=== PATIENT | female | born 1970 | race Caucasian/White ===

== ENCOUNTER → 2016-05-07 | Outpatient (CLI) | payer BC ==
[2016-05-07 16:52] LABS: Aty Lym Flag Slight; CH 31.8; CHCM 32.5; HCT 41.4 % (34.0-46.0); HGB 13.5 gm/dL (11.4-16.0); MCH 32.2 pg (25.0-35.0); MCHC 32.7 g/dL (31.0-37.0); MCV 98.5 fL (80.0-100.0); Mean Platelet Volume 7.6; RBC 4.21 m/uL (3.80-5.40); RDW 12.1 % (11.5-15.5); WBC 9.8 k/uL (3.8-10.6); WBC (Perox) 10.45
[2016-05-07 16:57] LABS: ALT 44 U/L (9-52); AST 32 U/L (14-36); Alkaline Phosphatase 54 U/L (38-126); Anion Gap 11 mmol/L; Blood Urea Nitrogen 11 mg/dL (7-17); Calcium 9.3 mg/dL (8.4-10.2); Carbon Dioxide 27 mmol/L (22-30); Chloride 103 mmol/L (98-107); Glucose 88 mg/dL (74-99); Non-African American GFR(MDRD) >60 (>60 ml/min/1.73 sqM); Potassium 4.1 mmol/L (3.5-5.1); Sodium 141 mmol/L (137-145); Total Bilirubin 0.5 mg/dL (0.2-1.3); Total Protein 7.5 g/dL (6.3-8.2)
[2016-05-07 17:31] LABS: Add Differential Manual Differential
[2016-05-07 17:34] LABS: Manual Review Performed; Nucleated Red Blood Cells 0 /100 WBC (0-0); RBC Morphology Normal; Total Cells Counted 100
== END | disposition home or self-care (01) ==
LOC: LABWHC1 16:19
PROVIDERS: ATTEND Internal Medicine Geriatric Medicine
DX: E03.9 Hypothyroidism, unspecified (principal)
CPT/HCPCS: 36415; 80053; 84439; 84443; 85025

== ENCOUNTER → 2016-07-08 | Outpatient (CLI) | payer BC | LOC: LABWHC1 17:00 | PROVIDERS: ATTEND Internal Medicine Geriatric Medicine | DX: E03.9 Hypothyroidism, unspecified (principal) | CPT/HCPCS: 36415; 84439; 84443 ==

== ENCOUNTER 2016-09-09 09:30 | Day surgery (SDC) | payer BC ==
[~2016-09-09 09:30] MED LIST: SODIUM CHLORIDE 0.9% 1,000 ML IV SCH
[2016-09-09 10:27] VITALS: BP 107/76; PULSE 87; RESP 16; TEMP 98.6
--- NOTE | 2016-09-09 13:39 | P.PCN ---
Preoperative Diagnosis: Twelve-lead ECG Sinus mechanism, mildly prolonged CT interval normal QT interval normal ST segments Tilt table test Patient underwent tilt table test per protocol. Normal heart rate and blood pressure response to upright tilting No evidence for neurocardiogenic syncope or dysautonomia Postoperative Diagnosis: Procedure(s) Performed: Implants: Indications for Procedure: Operative Findings: Description of Procedure:
== END 2016-09-09 13:30 | disposition home or self-care (01) ==
LOC: CATHEP 09:30
PROVIDERS: ATTEND Internal Medicine Clinical Cardiac Electrophysiology
DX: R00.0 Tachycardia, unspecified (principal); R00.2 Palpitations; Z87.891 Personal history of nicotine dependence; Z79.899 Other long term (current) drug therapy; Z88.5 Allergy status to narcotic agent; Z88.0 Allergy status to penicillin
CPT/HCPCS: 81025; 93005; 93660

== ENCOUNTER 2016-10-06 00:20 | Emergency (ER) | payer BC ==
[2016-10-06 00:27] VITALS: RESP 18
--- NOTE | 2016-10-06 00:49 | ED ---
Chest Pain HPI - General Chief Complaint: Chest Pain Stated Complaint: chest pain Time Seen by Provider: 10/06/16 00:33 Source: patient Mode of arrival: wheelchair Limitations: no limitations - History of Present Illness Initial Comments: This patient is a 46-year-old woman who presents to be evaluated for chest pain. Started this evening and she states that it also seems to be in her neck and left shoulder. She states the pain is tight or squeezing. It is moderate intensity and is constant. She has noted it is worse if she moves her shoulder or if she presses on her chest. She has not noted any relieving factors. She did not have any associated symptoms, including no dyspnea, diaphoresis, nausea or vomiting, palpitations, lightheadedness or syncope. No smoking history. MD Complaint: chest pain -: hour(s) Onset: during rest Pain Location: substernal Pain Radiation: neck Severity: moderate Quality: tightness Consistency: constant Improves With: nothing Worsens With: palpation, movement Treatments Prior to Arrival: none - Related Data Home Medications Medication Instructions Recorded Confirmed DULoxetine HCL [Cymbalta] 60 mg PO DAILY 09/09/16 09/09/16 Diltiazem Cd [Cardizem Cd] 180 mg PO DAILY 09/09/16 10/06/16 Levothyroxine Sodium [Synthroid] 25 mcg PO DAILY 09/09/16 10/06/16 Digoxin [Lanoxin] 125 mcg PO DAILY 10/06/16 10/06/16 Allergies Allergy/AdvReac Type Severity Reaction Status Date / Time amoxicillin Allergy Rash/Hives Verified 09/09/16 10:12 Review of Systems ROS Statement: Those systems with pertinent positive or pertinent negative responses have been documented in the HPI. ROS Other: All systems not noted in ROS Statement are negative. Constitutional: Denies: fever, chills, weakness Respiratory: Denies: cough, dyspnea, wheezes Cardiovascular: Reports: as per HPI, chest pain. Denies: palpitations, edema, syncope Gastrointestinal: Denies: abdominal pain, nausea, vomiting Genitourinary: Denies: dysuria, hematuria Musculoskeletal: Denies: back pain Skin: Denies: rash Neurological: Denies: headache, weakness, numbness, paresthesias EKG Findings - EKG Results: EKG: interpreted by JO ANN, sinus rhythm (Rate approximately 93 bpm), normal axis , normal QRS, normal ST/T - Blocks, Aneta, Hypertrophy, ST Abn: AV and intraventricular conduction: 1 AV block Past Medical History Additional Past Medical History / Comment(s): INTERSTITIAL CYSTITIS, ENDOMETRIOSIS History of Any Multi-Drug Resistant Organisms: None Reported Additional Past Surgical History / Comment(s): ECTOPIC RUPTURE Past Psychological History: Anxiety, Depression Smoking Status: Former smoker Past Alcohol Use History: Daily Past Drug Use History: None Reported General Exam Limitations: no limitations General appearance: alert, in no apparent distress Head exam: Present: atraumatic, normocephalic Eye exam: Present: normal appearance. Absent: scleral icterus, conjunctival injection ENT exam: Present: normal oropharynx Neck exam: Present: normal inspection, full ROM Respiratory exam: Present: normal lung sounds bilaterally, chest wall tenderness (Palpation reproduces the patient's pain). Absent: respiratory distress, wheezes, rales, rhonchi, stridor Cardiovascular Exam: Present: regular rate, normal rhythm, normal heart sounds. Absent: systolic murmur, diastolic murmur, rubs, gallop GI/Abdominal exam: Present: soft. Absent: distended, tenderness, guarding, rebound, rigid Extremities exam: Present: normal inspection, normal capillary refill. Absent: pedal edema, calf tenderness Back exam: Present: normal inspection. Absent: CVA tenderness (R), CVA tenderness (L) Neurological exam: Present: alert Skin exam: Present: warm, dry, intact, normal color. Absent: rash Course Vital Signs 10/06/16 10/06/16 10/06/16 00:23 01:40 02:41 Temperature 98.1 F Pulse Rate 104 H 100 82 Respiratory 18 18 18 Rate Blood Pressure 119/80 168/98 132/82 O2 Sat by Pulse 96 99 97 Oximetry 10/06/16 03:32 Temperature 97.9 F Pulse Rate Respiratory Rate Blood Pressure O2 Sat by Pulse Oximetry Disposition Clinical Impression: Chest pain, Chest wall syndrome Disposition: HOME SELF-CARE Condition: Good Instructions: Chest Wall Pain (ED) Referrals: Lucio Garg MD [Primary Care Provider] - 1-2 days
[2016-10-06 01:50] LABS: Basophils # (A) 0.1 k/uL (0-0.2); Basophils % (A) 1 %; CH 32.5; CHCM 33.9; Eosinophils # (A) 0.2 k/uL (0-0.7); Eosinophils % (A) 2 %; HDW 2.08; HGB 13.1 gm/dL (11.4-16.0); Luc # (Auto) 0.27; Luc % (Auto) 3; Lymphocytes % (A) 24 %; MCH 30.9 pg (25.0-35.0); MCV 96.3 fL (80.0-100.0); Mean Platelet Volume 7.1; Monocytes % (A) 12 %; Neutrophils # (A) 4.7 k/uL (1.3-7.7); Neutrophils % (A) 58 %; RBC 4.26 m/uL (3.80-5.40); RDW 13.1 % (11.5-15.5); WBC 8.2 k/uL (3.8-10.6); WBC (Perox) 7.88
[2016-10-06 02:03] LABS: ALT 43 U/L (9-52); AST 32 U/L (14-36); Alkaline Phosphatase 69 U/L (38-126); Anion Gap 10 mmol/L; Blood Urea Nitrogen 8 mg/dL (7-17); Calcium 10.1 mg/dL (8.4-10.2); Carbon Dioxide 28 mmol/L (22-30); Chloride 102 mmol/L (98-107); Glucose 88 mg/dL (74-99); Non-African American GFR(MDRD) >60 (>60 ml/min/1.73 sqM); Sodium 140 mmol/L (137-145); Total Bilirubin 0.3 mg/dL (0.2-1.3)
[2016-10-06 02:10] LABS: Creatine Kinase 73 U/L (30-135)
[2016-10-06 02:12] LABS: Partial Thromboplastin Time 23.5 sec (22.0-30.0)
[2016-10-06 02:23] LABS: Creatine Kinase MB 0.6 ng/mL (0.0-2.4); Troponin I <0.012 ng/mL (0.000-0.034)
--- NOTE | 2016-10-06 02:25 | XR ---
EXAM: XR Chest, 1 View CLINICAL HISTORY: Chest pain. TECHNIQUE: Frontal view of the chest. COMPARISON: Chest radiograph dated 05/14/14. FINDINGS: Lungs: No airspace consolidation. Pleural space: No significant pleural effusion. No pneumothorax. Heart: Normal cardiac silhouette. Mediastinum: Unremarkable. Bones/joints: Unremarkable as visualized. IMPRESSION: No acute findings.
[2016-10-06 02:42] VITALS: BP 132/82; PULSE 82
[2016-10-06 03:32] VITALS: TEMP 97.9
== END 2016-10-06 03:32 | disposition home or self-care (01) ==
LOC: EC 00:20
DX: R07.1 Chest pain on breathing (principal); F41.9 Anxiety disorder, unspecified; F32.9 Major depressive disorder, single episode, unspecified; Z87.891 Personal history of nicotine dependence; Z79.899 Other long term (current) drug therapy; Z88.0 Allergy status to penicillin
CPT/HCPCS: 36415; 71010; 80053; 82550; 82553; 83735; 84484; 85025; 85379; 85610; 85730; 93005; 99285

== ENCOUNTER → 2017-03-04 | Outpatient (CLI) | payer BC ==
--- NOTE | 2017-03-05 10:14 | MM ---
Reason for exam: screening (asymptomatic). Last mammogram was performed 2 years ago. History: Patient is nulliparous. Family history of breast cancer in paternal grandmother. Took hormonal contraceptives for 3 years beginning at age 40. Physical Findings: A clinical breast exam by your physician is recommended on an annual basis and results should be correlated with mammographic findings. MG Screening Mammo w CAD Bilateral CC and MLO view(s) were taken. Prior study comparison: March 02, 2015, bilateral MG screening mammo w CAD. February 17, 2014, bilateral MG screening mammo w CAD. The breast tissue is heterogeneously dense. This may lower the sensitivity of mammography. There is no discrete abnormality. ASSESSMENT: Negative, BI-RAD 1 RECOMMENDATION: Routine screening mammogram of both breasts in 1 year.
== END | disposition home or self-care (01) ==
LOC: RADMAMWWP 15:01
PROVIDERS: ATTEND Internal Medicine Geriatric Medicine
DX: Z12.31 Encounter for screening mammogram for malignant neoplasm of breast (principal)
CPT/HCPCS: 77067

== ENCOUNTER → 2017-07-15 | Outpatient (CLI) | payer BC ==
--- NOTE | 2017-07-15 11:42 | US ---
EXAMINATION TYPE: US transvaginal DATE OF EXAM: 07/15/2017 COMPARISON: 01/02/2015 CLINICAL HISTORY: R10.2 PELVIC PAIN. h/o of endometriosis and chocolate cysts TECHNIQUE: Transvaginal (TV). Date of LMP: 07/06/2017 EXAM MEASUREMENTS: Uterus: 6.7 x 3.3 x 4.3 cm Endometrial Stripe: 0.3 cm Right Ovary: 1.9 x 1.4 x 1.4 cm Left Ovary: not visualized 1. Uterus: Anteverted 2. Endometrium: wnl 3. Right Ovary: wnl 4. Left Ovary: Obscured by overlying bowel 5. Bilateral Adnexa: wnl 6. Posterior cul-de-sac: wnl IMPRESSION: No distinct abnormality appreciated at this time.
== END | disposition home or self-care (01) ==
LOC: RADUSWWP 10:26
PROVIDERS: ATTEND Internal Medicine Geriatric Medicine
DX: R10.2 Pelvic and perineal pain (principal)
CPT/HCPCS: 76830

== ENCOUNTER → 2017-07-16 | Outpatient (CLI) | payer BC ==
--- NOTE | 2017-07-16 19:59 | XR ---
EXAMINATION TYPE: XR abdomen 1V DATE OF EXAM: 07/16/2017 COMPARISON: NONE HISTORY: Abdominal pain for one week TECHNIQUE: 2 views FINDINGS: There is no sign of intestinal obstruction or pneumoperitoneum. Fecal pattern is normal. Th ere are clips from cholecystectomy. Lung bases are clear. There is no evidence of a mass. Bony struct ures are intact. There is slight thoracolumbar dextroscoliosis. IMPRESSION: Nonacute abdomen.
== END | disposition home or self-care (01) ==
LOC: RADXRMAIN 17:02
PROVIDERS: ATTEND Internal Medicine Geriatric Medicine
DX: R10.9 Unspecified abdominal pain (principal)
CPT/HCPCS: 74018

== ENCOUNTER → 2017-12-09 | Outpatient (CLI) | payer BC ==
[2017-12-09 17:54] LABS: T4, Free (Free Thyroxine) 0.69 ng/dL (0.78-2.19)
== END ==
LOC: LABWHC1 16:44
PROVIDERS: ATTEND Obstetrics & Gynecology
DX: N94.6 Dysmenorrhea, unspecified (principal)
CPT/HCPCS: 36415; 84439; 84443

== ENCOUNTER → 2018-04-17 | Outpatient (CLI) | payer BC ==
[2018-04-17 17:12] LABS: Iron Saturation 25.79 (12.00-45.00)
== END | disposition home or self-care (01) ==
LOC: LABWHC1 10:42
PROVIDERS: ATTEND Internal Medicine Critical Care Medicine
DX: G25.81 Restless legs syndrome (principal); R53.82 Chronic fatigue, unspecified
CPT/HCPCS: 36415; 82728; 83540; 83550

== ENCOUNTER → 2018-08-03 | Outpatient (CLI) | payer BC ==
--- NOTE | 2018-08-04 10:57 | MM ---
Reason for exam: screening (asymptomatic). Last mammogram was performed 1 year and 5 months ago. History: Patient is nulliparous. Family history of breast cancer in paternal grandmother. Took hormonal contraceptives for 3 years beginning at age 40. Physical Findings: A clinical breast exam by your physician is recommended on an annual basis and results should be correlated with mammographic findings. MG 3D Screening Mammo W/Cad Bilateral CC and MLO view(s) were taken. Prior study comparison: March 04, 2017, bilateral MG screening mammo w CAD. March 02, 2015, bilateral MG screening mammo w CAD. There are scattered fibroglandular densities. No significant new finding when compared with prior studies. ASSESSMENT: Benign, BI-RAD 2 RECOMMENDATION: Routine screening mammogram of both breasts in 1 year.
== END | disposition home or self-care (01) ==
LOC: RADMAMWWP 14:20
PROVIDERS: ATTEND Internal Medicine Geriatric Medicine
DX: Z12.31 Encounter for screening mammogram for malignant neoplasm of breast (principal)
CPT/HCPCS: 77063; 77067

== ENCOUNTER → 2018-09-29 | Outpatient (CLI) | payer BC ==
--- NOTE | 2018-09-29 09:45 | US ---
EXAMINATION TYPE: US thyroid st tissue head/neck DATE OF EXAM: 09/29/2018 COMPARISON: NONE CLINICAL HISTORY: E04.1 thyroid nodule. Intermittent sore throat and difficulty swallowing x couple y ears, voice changes, on thyroid meds. GLAND SIZE: Right Lobe: 4.6 x 1.3 x 1.5 cm Overall Parenchyma: mildly heterogeneous Left Lobe: 4.5 x 1.3 x 0.9 cm Overall Parenchyma: mildly heterogeneous Isthmus Thickness: 0.3 cm NODULES RIGHT: # of nodules measured on right: 0 LEFT: # of nodules measured on left: 0 ISTHMUS: # of nodules measured in the isthmus: 0 Bilateral neck scanned, no evidence of lymphadenopathy. IMPRESSION: Very mildly heterogenous thyroid glandular echotexture, however no discrete nodule is seen.
--- NOTE | 2018-09-29 10:51 | FL ---
EXAMINATION TYPE: FL barium swallow DATE OF EXAM: 09/29/2018 CLINICAL HISTORY: Known gastroesophageal reflux and hiatal hernia. Dysphagia. TECHNIQUE: A double contrast esophagram is performed utilizing air and barium. A total of 1 minute and 36 seconds of fluoroscopic time was utilized during procedure. 38 fluoroscopic images were saved. COMPARISON: None FINDINGS: The esophagus shows normal motility and emptying into the stomach. No evidence of strictur e. No significant gastroesophageal reflux was seen during real time performance of this study. Small hiatal hernia is seen on supine imaging with stasis of flow in the small hiatal hernia and mild intra esophageal reflux as a result. In the right lateral decubitus and upright gravity dependent positions no stone significant stasis is seen nor intraesophageal reflux. IMPRESSION: Small sliding type hiatal hernia resulting in stasis of contrast in mild degree intraesop hageal reflux in the supine position. This resolves in the gravity dependent positions.
== END | disposition home or self-care (01) ==
LOC: RADUSWWP 09:02
PROVIDERS: ATTEND Otolaryngology
DX: K21.9 Gastro-esophageal reflux disease without esophagitis (principal); K44.9 Diaphragmatic hernia without obstruction or gangrene; E07.9 Disorder of thyroid, unspecified
CPT/HCPCS: 74220; 76536

== ENCOUNTER → 2019-04-20 | Outpatient (CLI) | payer BC ==
[2019-04-20 16:13] LABS: Chol/HDL Ratio 5.24; LDL Cholesterol,Calculated 103.6 mg/dL (0.0-131.0); VLDL Calculation 19.4 mg/dL (5.00-40.00)
== END | disposition home or self-care (01) ==
LOC: LABWHC1 12:01
PROVIDERS: ATTEND Internal Medicine Interventional Cardiology
DX: E78.2 Mixed hyperlipidemia (principal)
CPT/HCPCS: 36415; 80061; 84450; 84460

== ENCOUNTER → 2019-09-30 | Outpatient (CLI) | payer BC ==
[2019-09-30 23:45] LABS: Creatine Kinase 108 U/L (26-186); Rheumatoid Factor, Qnt <4 IU/mL (0-15)
== END | disposition home or self-care (01) ==
LOC: LABMAIN 16:32
PROVIDERS: ATTEND Psychiatry & Neurology Neurology
DX: M33.20 Polymyositis, organ involvement unspecified (principal); M25.50 Pain in unspecified joint
CPT/HCPCS: 36415; 82550; 85652; 86038; 86235; 86431

== ENCOUNTER → 2019-10-18 | Outpatient (CLI) | payer BC ==
--- NOTE | 2019-10-19 13:35 | MM ---
Reason for exam: screening (asymptomatic). Last mammogram was performed 1 year and 2 months ago. History: Patient is nulliparous. Family history of breast cancer in paternal grandmother at age 50. Took hormonal contraceptives for 3 years beginning at age 40. Physical Findings: A clinical breast exam by your physician is recommended on an annual basis and results should be correlated with mammographic findings. MG 3D Screening Mammo W/Cad Bilateral CC and MLO view(s) were taken. Prior study comparison: August 03, 2018, bilateral MG 3d screening mammo w/cad. March 04, 2017, bilateral MG screening mammo w CAD. The breast tissue is heterogeneously dense. This may lower the sensitivity of mammography. Focal asymmetry left breast. No significant changes when compared with prior studies. ASSESSMENT: Benign, BI-RAD 2 RECOMMENDATION: Routine screening mammogram of both breasts in 1 year.
== END | disposition home or self-care (01) ==
LOC: RADMAMWWP 16:05
PROVIDERS: ATTEND Internal Medicine Geriatric Medicine
DX: Z12.31 Encounter for screening mammogram for malignant neoplasm of breast (principal)
CPT/HCPCS: 77063; 77067

== ENCOUNTER → 2019-11-10 | Outpatient (CLI) | payer BC ==
[2019-11-10 10:25] LABS: Basophils # (A) 0.1 k/uL (0-0.2); Basophils % (A) 1 %; Eosinophils # (A) 0.2 k/uL (0-0.7); Eosinophils % (A) 2 %; HCT 49.2 % (34.0-46.0); HGB 15.6 gm/dL (11.4-16.0); Lymphocytes # (A) 2.8 k/uL (1.0-4.8); Lymphocytes % (A) 33 %; MCH 30.7 pg (25.0-35.0); MCHC 31.6 g/dL (31.0-37.0); Mean Platelet Volume 6.8; Monocytes # (A) 0.6 k/uL (0-1.0); Monocytes % (A) 7 %; Neutrophils # (A) 4.7 k/uL (1.3-7.7); Neutrophils % (A) 55 %; Platelet Count 424 k/uL (150-450); RBC 5.07 m/uL (3.80-5.40); RDW 12.3 % (11.5-15.5); WBC 8.6 k/uL (3.8-10.6)
[2019-11-10 16:53] LABS: T4, Free (Free Thyroxine) 1.3 ng/dL (0.80-1.80)
[2019-11-10 17:17] LABS: Albumin 4.7 g/dL (3.80-4.90); Albumin/Globulin Ratio 2.94 (1.60-3.17); Anion Gap 8.1 mmol/L (4.00-12.00); BUN/Creat Ratio 7.5 Ratio (12.00-20.00); Calcium 9.5 mg/dL (8.7-10.3); Carbon Dioxide 24.9 mmol/L (21.6-31.8); Chol/HDL Ratio 5.67; Globulin 1.6 g/dL (1.6-3.3); LDL Cholesterol,Calculated 111.6 mg/dL (0.0-131.0); Non-African American GFR(CKD) 52.7 (60.0-200.0); Potassium 4.6 mmol/L (3.5-5.5); Total Bilirubin 0.8 mg/dL (0.2-1.2); Total Protein 6.3 g/dL (6.2-8.2); VLDL Calculation 28.4 mg/dL (5.00-40.00)
== END | disposition home or self-care (01) ==
LOC: LABWHC1 09:23
PROVIDERS: ATTEND Internal Medicine Geriatric Medicine
DX: E03.9 Hypothyroidism, unspecified (principal); E78.5 Hyperlipidemia, unspecified; N18.9 Chronic kidney disease, unspecified
CPT/HCPCS: 36415; 80053; 80061; 84439; 84443; 85025

== ENCOUNTER → 2020-08-27 | Outpatient (CLI) | payer BC | END | disposition home or self-care (01) | CPT/HCPCS: 82565; 84520; 74178; 36415; Q9967 ==

== ENCOUNTER → 2020-11-21 | Outpatient (CLI) | payer BC ==
--- NOTE | 2020-11-22 12:16 | MM ---
Reason for exam: screening (asymptomatic). Last mammogram was performed 1 year and 1 month ago. History: Patient is nulliparous. Family history of breast cancer in mother at age 78 and breast cancer in paternal grandmother at age 50. Took hormonal contraceptives for 3 years beginning at age 40. Taking progesterone for 5 years. Physical Findings: A clinical breast exam by your physician is recommended on an annual basis and results should be correlated with mammographic findings. MG 3D Screening Mammo W/Cad Bilateral CC and MLO view(s) were taken. Prior study comparison: October 18, 2019, bilateral MG 3d screening mammo w/cad. August 03, 2018, bilateral MG 3d screening mammo w/cad. The breast tissue is heterogeneously dense. This may lower the sensitivity of mammography. There is no discrete abnormality. No significant changes when compared with prior studies. ASSESSMENT: Benign, BI-RAD 2 RECOMMENDATION: Routine screening mammogram of both breasts in 1 year. Manage patient on a clinical basis.
== END | disposition home or self-care (01) ==
LOC: RADMAMWWP 08:11
PROVIDERS: ATTEND Internal Medicine Geriatric Medicine
DX: Z12.31 Encounter for screening mammogram for malignant neoplasm of breast (principal); Z80.3 Family history of malignant neoplasm of breast
CPT/HCPCS: 77063; 77067

== ENCOUNTER → 2021-06-06 | Outpatient (CLI) | payer BC ==
[2021-06-07 04:46] LABS: Gliadin AB IgA, Deaminated NEGATIVE (NEGATIVE); Gliadin AB IgA, Unit <0.2 U/mL; Gliadin AB IgG, Deaminated NEGATIVE (NEGATIVE); Gliadin AB IgG, Unit <0.4 U/mL
== END | disposition home or self-care (01) ==
LOC: LABWHC1 15:56
PROVIDERS: ATTEND Internal Medicine Gastroenterology
DX: K58.2 Mixed irritable bowel syndrome (principal)
CPT/HCPCS: 36415; 83516

== ENCOUNTER → 2021-08-05 | Outpatient (CLI) | payer BC ==
[2021-08-05 16:19] LABS: African American GFR (CKD) >90 (>60 ml/min/1.73 sqM); Blood Urea Nitrogen 7 mg/dL (7-17); Non-African American GFR(CKD) 82 (>60 ml/min/1.73 sqM)
--- NOTE | 2021-08-05 21:34 | CT ---
EXAMINATION TYPE: CT abdomen pelvis w con DATE OF EXAM: 08/05/2021 COMPARISON: CT dated 08/27/2020 HISTORY: abnormal weight loss and RLQ pain CT DLP: 445.9 mGycm Automated exposure control for dose reduction was used. TECHNIQUE: Helical acquisition of images was performed from the lung bases through the pelvis. CONTRAST: Performed with Oral Contrast and with IV Contrast, patient injected with 100 mL of Isovue 300. FINDINGS: LUNG BASES: No significant abnormality is appreciated. LIVER/GB: Signs of hepatic steatosis. Previous cholecystectomy. PANCREAS: No significant abnormality is seen. SPLEEN: No significant abnormality is seen. ADRENALS: No significant abnormality is seen. KIDNEYS: No significant abnormality is seen. FREE AIR: No free air is visualized. RETROPERITONEAL ADENOPATHY: None visualized REPRODUCTIVE ORGANS: No gross uterine or adnexal mass. URINARY BLADDER: No significant abnormality is seen. PELVIC ADENOPATHY: No pathologically enlarged pelvic lymph nodes. OSSEOUS STRUCTURES: No aggressive bone lesion. BOWEL: Grossly unremarkable stomach, duodenum and small bowel. Scattered uncomplicated colonic diver ticulosis. Mild diffuse wall thickening of the colon, nonspecific. Chronic colitis cannot be excluded . OTHER: Unremarkable abdominal aorta. No sizable ascites IMPRESSION: No definite acute abnormality or suspicious lesion seen in the abdomen or the pelvis. Incidental find ings as described above.
== END | disposition home or self-care (01) ==
LOC: RADCTMAIN 15:16
PROVIDERS: ATTEND Internal Medicine Gastroenterology
DX: K63.89 Other specified diseases of intestine (principal); K57.30 Diverticulosis of large intestine without perforation or abscess without bleeding; R63.4 Abnormal weight loss
CPT/HCPCS: 82565; 84520; 74177; 36415; Q9967 ×2

== ENCOUNTER → 2022-02-28 | Outpatient (CLI) | payer BC ==
--- NOTE | 2022-03-03 08:22 | MM ---
Reason for Exam: Screening (asymptomatic). Last mammogram was performed 1 year(s) and 4 month(s) ago. Patient History: Menarche at age 12. Patient has no children. Perimenopausal. Currently using Progesterone, for 5 years. Hormonal Contraceptives for 3 years from age 40 until age 43. Paternal grandmother had breast cancer, age 50. Mother had breast cancer, age 78. Risk Values: Harleen 5 year model risk: 2.1%. NCI Lifetime model risk: 16.3%. Prior Study Comparison: 08/03/2018 Bilateral Screening Mammogram, [facility]. 10/18/2019 Bilateral Screening Mammogram, [facility]. 11/21/2020 Bilateral Screening Mammogram, [facility]. Tissue Density: The breast tissue is heterogeneously dense. This may lower the sensitivity of mammography. Findings: Analyzed By CAD. There is no suspicious group of microcalcifications or new suspicious mass in either breast. Overall Assessment: Negative, BI-RAD 1 Management: Screening Mammogram of both breasts in 1 year. A clinical breast exam by your physician is recommended on an annual basis and results should be correlated with mammographic findings. [facility] will attempt to contact patient to return for supplemental views and ultrasound if indicated. Electronically signed and approved by: Aurelio Fuentes DO
== END | disposition home or self-care (01) ==
LOC: RADMAMWWP 16:35
PROVIDERS: ATTEND Internal Medicine Geriatric Medicine
DX: Z12.31 Encounter for screening mammogram for malignant neoplasm of breast (principal); Z80.3 Family history of malignant neoplasm of breast
CPT/HCPCS: 77063; 77067

== ENCOUNTER → 2023-04-07 | Outpatient (CLI) | payer MEDICARE ==
--- NOTE | 2023-04-08 21:51 | MM ---
Reason for Exam: Screening (asymptomatic). Last mammogram was performed 1 year(s) and 1 month(s) ago. Patient History: Menarche at age 12. Patient has no children. Perimenopausal. Currently using Progesterone, for 5 years. Hormonal Contraceptives for 3 years from age 40 until age 43. Paternal grandmother had breast cancer, age 50. Mother had breast cancer, age 78. Risk Values: Harleen 5 year model risk: 2.2%. NCI Lifetime model risk: 16.1%. Prior Study Comparison: 10/18/2019 Bilateral Screening Mammogram, [facility]. 11/21/2020 Bilateral Screening Mammogram, [facility]. 02/28/2022 Bilateral MG 3D screening mammo w/cad, [facility]. Tissue Density: The breast tissue is heterogeneously dense. This may lower the sensitivity of mammography. Findings: Analyzed By CAD. There is no suspicious group of microcalcifications or new suspicious mass in either breast. Overall Assessment: Negative, BI-RAD 1 Management: Screening Mammogram of both breasts in 1 year. . Patient should continue monthly self-breast exams. A clinical breast exam by your physician is recommended on an annual basis. This exam should not preclude additional follow-up of suspicious palpable abnormalities. Note on Harleen scores and lifetime risk: 1. A Harleen score greater than 3% is considered moderate risk. If this is the case, consider specialist referral to assess eligibility for a risk reducing agent. 2. If overall lifetime risk for the development of breast cancer is 20% or higher, the patient may qualify for future screening with alternating mammogram and breast MRI. Electronically signed and approved by: Cinthia Cloud M.D. Radiologist
== END | disposition home or self-care (01) ==
LOC: RADMAMWWP 15:56
PROVIDERS: ATTEND Internal Medicine Geriatric Medicine
DX: Z12.31 Encounter for screening mammogram for malignant neoplasm of breast (principal); Z78.0 Asymptomatic menopausal state; Z80.3 Family history of malignant neoplasm of breast
CPT/HCPCS: 77063; 77067

== ENCOUNTER → 2023-04-29 | Outpatient (CLI) | payer MEDICARE ==
--- NOTE | 2023-04-29 08:51 | US ---
EXAMINATION TYPE: US abdomen complete DATE OF EXAM: 04/29/2023 COMPARISON: NONE CLINICAL INDICATION: Female, 52 years old with history of R10.9 UNSPECIFIED ABDOMINAL PAIN; Right manuel ed pain. Hx colitis, endometriosis, IBS. TECHNIQUE: Multiple sonographic images of the abdomen are obtained. FINDINGS: EXAM MEASUREMENTS: Liver Length: 15.6 cm Gallbladder Wall: Surgically absent CBD: 0.61 cm Right Kidney: 8.5 x 4.2 x 4.0 cm Left Kidney: 9.4 x 4.2 x 4.1 cm [employer] NOTES: Pancreas: wnl Liver: Increased echogenicity Gallbladder: Surgically absent Evidence for sonographic Cade's sign: No CBD: wnl Spleen: Unable to visualize due to overlying bowel gas Right Kidney: Appears wnl Left Kidney: Appears wnl Upper IVC: wnl Abd Aorta: wnl The intrahepatic portion of the IVC and proximal abdominal aorta are within normal limits. Common bi le duct is unremarkable. The visualized portions of the pancreas are homogenous. The spleen is unre markable. Kidneys are symmetric and free of hydronephrosis. No renal lesions are seen. IMPRESSION: Hepatic steatosis.
== END | disposition home or self-care (01) ==
LOC: RADUSWWP 08:07
PROVIDERS: ATTEND Internal Medicine Geriatric Medicine
DX: K76.0 Fatty (change of) liver, not elsewhere classified (principal)
CPT/HCPCS: 76700